=== PATIENT | male | born 1980 | race Two or more races ===

== ENCOUNTER 2020-05-13 19:13 | Emergency (ER) | payer BC ==
[2020-05-13 19:39] VITALS: TEMP 98; BMI 26.1
[2020-05-13 21:56] VITALS: BP 143/75
[2020-05-13 22:16] VITALS: PULSE 54
--- NOTE | 2020-05-14 00:36 | PDOC ---
Documentation entered by Roman Coles SCRIBE, acting as scribe for Kacie Ortiz MD. Kacie Ortiz MD: This documentation has been prepared by the Sharyn garcia Angel, SCRIBE, under my direction and personally reviewed by me in its entirety. I confirm that the documentation accurately reflects all work, treatment, procedures, and medical decision making performed by me. History of Present Illness - General Chief Complaint: Injury Stated Complaint: FELL Time Seen by Provider: 05/13/20 19:15 History Source: Patient, Significant Other Exam Limitations: No Limitations - History of Present Illness Initial Comments: 05/13/20 19:42 The patient is a 39 year old male with no significant past medical history who presents to the ED s/p fall today at 12pm. The patient was out hiking with his and after reaching a waterfall he slipped on wet rocks falling backwards. The patient reports striking the back of his head on the rocks. The patients states he did not lose consciousness but was disoriented for a brief period of time before coming to. The notes the patient recalling certain details of the event incorrectly as well. The patient reports a headache as well as slight pain in the back of his neck. The patient has not taken any medications for pain prior to arrival. The patient denies any change in speech or gait, weakness, dizziness, chest pain or back pain. Past History - Medical History Allergies/Adverse Reactions: Allergies Allergy/AdvReac Type Severity Reaction Status Date / Time No Known Allergies Allergy Verified 05/13/20 19:20 Home Medications: Ambulatory Orders NK [No Known Home Medication] 05/13/20 Review of Systems - Review of Systems Able to Perform ROS?: Yes Comments:: 05/13/20 19:43 GENERAL/CONSTITUTIONAL: No fever or chills. No weakness. HEAD, EYES, EARS, NOSE AND THROAT: No change in vision. No ear pain or discharge. No sore throat. CARDIOVASCULAR: No chest pain or shortness of breath. RESPIRATORY: No cough, wheezing, or hemoptysis. GASTROINTESTINAL: No nausea, vomiting, diarrhea or constipation. GENITOURINARY: No dysuria, frequency, or change in urination. MUSCULOSKELETAL: +Neck pain. No joint or muscle swelling or pain. No back pain. SKIN: No rash NEUROLOGIC: +Headache. No vertigo, loss of consciousness, or change in strength/sensation. ENDOCRINE: No increased thirst. No abnormal weight change. HEMATOLOGIC/LYMPHATIC: No anemia, easy bleeding, or history of blood clots. ALLERGIC/IMMUNOLOGIC: No hives or skin allergy. *Physical Exam - Physical Exam 05/13/20 19:48 GENERAL: Awake, alert, and fully oriented, in no acute distress HEAD: +Midline occipital tenderness without abrasions or hematoma palpated. EYES: PERRLA, EOMI, sclera anicteric, conjunctiva clear ENT: Auricles normal inspection, hearing grossly normal, nares patent, oropharynx clear without exudates. Moist mucosa NECK: +Mild tenderness to palpation midline 2,3 and 4 vertebrae. Normal ROM, supple, no lymphadenopathy, JVD, or masses LUNGS: Breath sounds equal, clear to auscultation bilaterally. No wheezes, and no crackles HEART: Regular rate and rhythm, normal S1 and S2, no murmurs, rubs or gallops ABDOMEN: Soft, nontender, normoactive bowel sounds. No guarding, no rebound. No masses EXTREMITIES: Normal range of motion, no edema. No clubbing or cyanosis. No cords, erythema, or tenderness NEUROLOGICAL: Cranial nerves II through XII grossly intact. Normal speech, normal gait SKIN: Warm, Dry, normal turgor, no rashes or lesions noted. Medical Decision Making - Medical Decision Making 05/13/20 21:51 As noted above this otherwise healthy 39-year-old man presents with history of head trauma earlier in the day. Patient had brief episode of disorientation after striking the back of his head on a slippery rock while hiking. No LOC per se; he was able to complete the hike and has been otherwise without symptoms except for frontal headache and mild neck pain. Exam as noted Noncontrast head CT ordered and preliminary interpretation by [facility] for small subdural hematoma along the right tentorium. No skull fracture present. There is no midline shift, masses or other abnormality seen CT of cervical spine shows slight straightening of the cervical lordosis with normal alignment and no fracture or dislocation Results discussed with patient and his . There is no new neurosurgical coverage here. [facility] transfer center called regarding transfer to their facility 05/13/20 21:54 Patient accepted for transfer to care of Dr. Carney, Trauma surgery. Case discussed with him. Images of the noncontrast head CT and cervical spine CT electronically transmitted to [facility] Discharge - Discharge Information Problems reviewed: Yes Clinical Impression/Diagnosis: Subdural hematoma, acute Condition: Stable Disposition: TRANSFER ACUTE CARE/OTHER HOSP - Follow up/Referral Referrals: Aleshia [place] [Primary Care Provider] - - Patient Discharge Instructions - Post Discharge Activity - Transfer to Acute Care Facility Receiving Facility Name: [facility] Accepting Physician:: Dr Carney
--- NOTE | 2020-05-14 18:28 | EKG ---
Test Reason : Blood Pressure : / mmHG Vent. Rate : 055 BPM Atrial Rate : 055 BPM P-R Int : 176 ms QRS Dur : 090 ms QT Int : 440 ms P-R-T Axes : 025 000 005 degrees QTc Int : 420 ms SINUS BRADYCARDIA OTHERWISE NORMAL ECG NO PREVIOUS ECGS AVAILABLE Confirmed by RAYMUNDO CARSON MD ([id number]) on 05/14/2020 6:28:46 PM Referred By: Celia PATINO Confirmed By:RAYMUNDO CARSON MD
== END 2020-05-13 22:25 | disposition short-term general hospital (02) ==
LOC: FER 19:13
DX: S06.5X0A Traumatic subdural hemorrhage without loss of consciousness, initial encounter (principal)
CPT/HCPCS: 70450-TC; 72125-TC; 93005; 99285-25